=== PATIENT | male | born 1935 | race Caucasian/White ===

== ENCOUNTER 2018-02-10 09:59 | Outpatient (CLI) | payer MEDICARE ==
[2018-02-10 11:23] LABS: #Basophils 0.1 thou/uL (0.0-0.2); #Eosinphils 0.5 thou/uL (0.0-0.7); #Lymphocytes 1.4 thou/uL (1.20-3.40); #Monocytes 0.8 thou/uL (0.11-0.59); #Neutrophils 3.9 thou/uL (1.40-6.50); %Basophils 0.9 % (0.0-1.0); %Monocytes 11.8 % (0.0-10.0); %Neutrophils 59.3 % (42.0-75.0); Hemoglobin 15.3 g/dL (14.0-18.0); Mean Corpuscular HGB CONC 32.9 g/dL (32.0-36.0); Mean Corpuscular Volume 97.1 fL (78.0-98.0); Mean Platelet Volume 9.2 fL (7.4-10.4); Platelet Count 154 thou/uL (130-400); RBC Distribution Width 12.6 % (11.5-14.5); Red Blood Cell (RBC) Count 4.79 mill/uL (4.70-6.10); White Blood Cell (WBC) Count 6.6 thou/uL (4.8-10.8)
[2018-02-10 11:42] LABS: ALT (SGPT) 22 U/L (8-55); AST (SGOT) 22 U/L (5-34); Alkaline Phosphatase 97 U/L (40-150); Anion Gap 11 mmol/L (10-20); BUN (Urea Nitrogen) 21 mg/dL (8.4-25.7); Bilirubin, Total 0.7 mg/dL (0.2-1.2); Calc. Creatinine Clearance 0 mL/min (70-130); Calcium 9.5 mg/dL (7.8-10.44); Carbon Dioxide 31 mmol/L (23-31); Chloride 103 mmol/L (98-107); Estimated GFR-MDRD 71; Globulin 2.8 g/dL (2.4-3.5); Glucose 91 mg/dL (83-110); Potassium 4.2 mmol/L (3.5-5.1); Protein, Total 6.8 g/dL (5.8-8.1); Sodium 141 mmol/L (136-145)
--- NOTE | 2018-02-10 19:56 | EKG ---
Test Reason : Blood Pressure : / mmHG Vent. Rate : 051 BPM Atrial Rate : 051 BPM P-R Int : 174 ms QRS Dur : 086 ms QT Int : 462 ms P-R-T Axes : 059 -13 067 degrees QTc Int : 425 ms Sinus bradycardia Nonspecific T wave abnormality Abnormal ECG When compared with ECG of 10-JUL-2016 17:33, No significant change was found Confirmed by DR. Sixto BRITO ([id number]) on 02/10/2018 7:56:14 PM Referred By: YANIQUE Confirmed By:DR. Sixto BRITO
== END 2018-02-10 10:00 | disposition home or self-care (01) ==
LOC: LABBT 09:59
PROVIDERS: ATTEND Surgery
DX: Z01.818 Encounter for other preprocedural examination (principal); K40.91 Unilateral inguinal hernia, without obstruction or gangrene, recurrent
CPT/HCPCS: 80053; 85025; 93005; 93010

== ENCOUNTER 2018-02-21 11:48 | Outpatient (CLI) | payer MEDICARE ==
[2018-02-21 12:45] LABS: Hemoglobin 15.3 g/dL (14.0-18.0); Mean Corpuscular HGB CONC 32.3 g/dL (32.0-36.0); Mean Corpuscular Hemoglobin 31.3 pg (27.0-31.0); Mean Platelet Volume 8.8 fL (7.4-10.4); Platelet Count 163 thou/uL (130-400); RBC Distribution Width 12.6 % (11.5-14.5); White Blood Cell (WBC) Count 5.8 thou/uL (4.8-10.8)
--- NOTE | 2018-02-21 12:48 | RAD ---
TWO VIEWS OF THE CHEST: DATE: 02/21/18. COMPARISON: 07/10/16. HISTORY: Preoperative patient. FINDINGS: There is atherosclerotic calcification of the aortic arch. There is no pneumothorax, pleural fluid, focal consolidation, or alveolar edema. There is atherosclerotic calcification of the descending thoracic aorta. The lungs are mildly hyperi nflated, a stable finding. IMPRESSION: No acute findings. POS: [facility]
[2018-02-21 12:57] LABS: Prothrombin Time 13.2 SEC (12.0-14.7)
[2018-02-21 12:58] LABS: PTT 30.8 SEC (22.9-36.1)
[2018-02-21 13:12] LABS: ALT (SGPT) 22 U/L (8-55); AST (SGOT) 23 U/L (5-34); Alkaline Phosphatase 81 U/L (40-150); Anion Gap 10 mmol/L (10-20); BUN (Urea Nitrogen) 27 mg/dL (8.4-25.7); Bilirubin, Total 0.6 mg/dL (0.2-1.2); Calc. Creatinine Clearance 0 mL/min (70-130); Calcium 9.5 mg/dL (7.8-10.44); Carbon Dioxide 30 mmol/L (23-31); Chloride 105 mmol/L (98-107); Estimated GFR-MDRD 75; Globulin 2.7 g/dL (2.4-3.5); Glucose 83 mg/dL (83-110); Potassium 4.8 mmol/L (3.5-5.1); Protein, Total 6.7 g/dL (5.8-8.1); Sodium 140 mmol/L (136-145)
--- NOTE | 2018-02-21 13:38 | EKG ---
Test Reason : Blood Pressure : / mmHG Vent. Rate : 054 BPM Atrial Rate : 054 BPM P-R Int : 178 ms QRS Dur : 084 ms QT Int : 462 ms P-R-T Axes : 059 -15 082 degrees QTc Int : 438 ms Sinus bradycardia Minimal voltage criteria for LVH, may be normal variant Nonspecific T wave abnormality Cannot exclude Anterior infarct , age undetermined Abnormal ECG Confirmed by CAROL HARDIN ([id number]) on 02/21/2018 1:37:41 PM Referred By: RAJENDRA Confirmed By:CAROL HARDIN
== END 2018-02-21 11:49 | disposition home or self-care (01) ==
LOC: LABBT 11:48
PROVIDERS: ATTEND Internal Medicine Cardiovascular Disease
DX: Z01.818 Encounter for other preprocedural examination (principal); R94.39 Abnormal result of other cardiovascular function study
CPT/HCPCS: 71046; 80053; 85027; 85610; 85730; 93005; 93010

== ENCOUNTER 2018-02-25 05:56 | Inpatient (IN) | payer MEDICARE ==
[2018-02-21 12:00] VITALS: BMI 25.4
[2018-02-25] MEDS ORDERED: Lidocaine 1% (PF) 30 ML VIAL ONE (06:47)
[2018-02-25] MEDS ORDERED: Heparin 10,000 UNITS/1 ML VIAL ONE (06:49)
[2018-02-25] MEDS ORDERED: Midazolam HCl 2 mg/2 ml Vial ONE (07:13)
[2018-02-25] MEDS ORDERED: Fentanyl 100 MCG/2 ML VIAL ONE (07:13)
[2018-02-25 07:15] LABS: Cardiac Risk 2.9 (Less than 4.5)
[2018-02-25] MEDS ORDERED: Protamine Sulfate 50 MG/5 ML VIAL ONE (07:30)
[2018-02-25] MEDS ORDERED: Nitroglycerin 100MG/250ML BOT 250 ML ONE (07:45)
[2018-02-25] MEDS ORDERED: Bivalirudin 250 MG VIAL ONE (07:45)
[2018-02-25] MEDS ORDERED: Clopidogrel Bisulfate 300 MG TAB ONE ×2 (07:49→07:50)
[2018-02-25] MEDS ORDERED: Nitroglycerin 0.4 MG TAB (25 Tab Bottle) SL PRN (08:57)
[2018-02-25] MEDS ORDERED: Morphine 4 MG/ML VIAL SLOW IVP PRN (08:57)
[2018-02-25] MEDS ORDERED: Sodium Chloride 0.9% 1,000 ML IV SCH (09:00)
[2018-02-25] MEDS ORDERED: Iopamidol 370 76% 100 ML VIAL ONE (12:54)
[2018-02-25] MEDS ORDERED: Iopamidol 370 76% 50 ML VIAL FS ONE (12:54)
[2018-02-25] MEDS: Aspirin 81 mg Enteric Coated Tablet PO SCH (13:23)
[2018-02-25] MEDS: Carvedilol 3.125 MG TAB PO SCH (16:37)
[2018-02-25] MEDS ORDERED: Atorvastatin Calcium 40 MG TAB PO SCH (21:00)
[2018-02-26 07:19] VITALS: BP 144/63; TEMP 98.1
[2018-02-26] MEDS: Aspirin 81 mg Enteric Coated Tablet PO SCH (09:04)
[2018-02-26] MEDS: Carvedilol 3.125 MG TAB PO SCH (09:04)
--- NOTE | 2018-02-27 00:14 | DIS ---
DISCHARGE DIAGNOSES: 1. 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 2. Mild left ventricular dysfunction with ejection fraction of 40%-45%. 3. Moderate aortic stenosis with aortic valve area of 1.18 cm2. 4. Inability to cross the subtotal left anterior descending lesion with the wire. 5. Hypertension. 6. Hypercholesterolemia, poor control. 7. Thirteen beats of supraventricular tachycardia at a rate of 140 per minute, asymptomatic. DISCHARGE DISPOSITION: Mr. Albarado is in acceptable cardiac risk for general anesthesia to have his h ernia repair in the near future. He will be seen in 6 weeks with complete metabolic profile and fast ing lipid profile being obtained. DISCHARGE MEDICATIONS: Aspirin 81 daily, atorvastatin 40 mg daily, carvedilol 3.125 b.i.d., and isos orbide mononitrate 30 mg q.a.m. HOSPITAL COURSE: Mr. Albarado had an office cardiac PET scan performed for preoperative evaluation chey or to herniorrhaphy with Dr. Talley. This revealed severe ischemia in the mid to distal anterior, api helder and proximal to distal septal husain. He therefore underwent cardiac catheterization. He also duong s history of aortic stenosis and underwent a right heart catheterization as well. He was found to duong ve a gradient across the aortic valve of 16 mm with aortic valve area 1.18 cm2. There was mid to dis samantha anterior wall akinesis and a small area of apical dyskinesis with ejection fraction of 40%-45%. Coronary arteriography revealed a 99% proximal LAD lesion with the LAD filling retrograde from the ci rcumflex and from the right coronary artery with good collaterals. There was a 30% proximal right co ronary artery lesion. Attempt was made to pass a wire across the subtotally occluded LAD. However, with multiple wires and multiple attempts, this never could be crossed. It was felt best to treat him medically for his one -vessel coronary artery disease. Hydrochlorothiazide for hypertension was discontinued and he was in stead placed on carvedilol 3.125 b.i.d. and isosorbide mononitrate 30 q.a.m. His cholesterol was 147 , triglycerides 71, HDL 51, LDL 82 and atorvastatin was increased from 20 to 40 mg daily. He will be seen in 6 weeks for repeat lipid testing. He was observed overnight and then discharged the .
== END 2018-02-26 11:14 | disposition home or self-care (01) | DRG 287 ==
LOC: CCL 05:56 → 2NO 13:26
PROVIDERS: ADMIT Internal Medicine Cardiovascular Disease; ATTEND Internal Medicine Cardiovascular Disease
PROC: 4A023N8 Measurement of Cardiac Sampling and Pressure, Bilateral, Percutaneous Approach (ICD-10-PCS; principal; 2018-02-25)
PROC: B2111ZZ Fluoroscopy of Multiple Coronary Arteries using Low Osmolar Contrast (ICD-10-PCS; 2018-02-25)
DX: I25.10 Atherosclerotic heart disease of native coronary artery without angina pectoris (principal); I47.1 Supraventricular tachycardia; R94.39 Abnormal result of other cardiovascular function study; Z87.891 Personal history of nicotine dependence; I49.3 Ventricular premature depolarization; I25.82 Chronic total occlusion of coronary artery; I35.0 Nonrheumatic aortic (valve) stenosis; I34.0 Nonrheumatic mitral (valve) insufficiency; Z82.49 Family history of ischemic heart disease and other diseases of the circulatory system; E78.00 Pure hypercholesterolemia, unspecified; I10 Essential (primary) hypertension; E66.9 Obesity, unspecified; Z79.82 Long term (current) use of aspirin; Z79.899 Other long term (current) drug therapy; Z68.25 Body mass index [BMI] 25.0-25.9, adult
CPT/HCPCS: 36415; 80061; 85347; 93460; 99152; 99153; C1725; C1769; C1887; J0583; J1644; J2001; J2250; J2720; J3010

== ENCOUNTER 2018-03-07 08:10 | Day surgery (SDC) | payer MEDICARE ==
[2018-03-06 11:32] VITALS: BMI 24.7
[2018-03-07] MEDS ORDERED: CEFAZOLIN/Water 2 GM/20 ML SYRINGE ONE (08:27)
--- NOTE | 2018-03-07 09:01 | HP ---
CHIEF COMPLAINT: Multiple recurrent left inguinal hernia. HISTORY OF PRESENT ILLNESS: The patient is an 82-year-old male who has had at least 6 hernia repairs on the left with a recurrence. It is causing a lot of pain. He is here for repair. PAST MEDICAL HISTORY: Prostate cancer, kidney stones. PAST SURGICAL HISTORY: Include multiple bilateral inguinal hernia repairs. He has had a repair of a broken femur. He had a colon resection in 1976, a total hip replacement in 2012. MEDICATIONS: Atorvastatin, Lotrisone, aspirin, mometasone cream, hydrochlorothiazide. FAMILY HISTORY: Father of a stroke. Mother of heart disease. SOCIAL HISTORY: He is retired. No tobacco or alcohol. ALLERGIES: He has no known drug allergies. PHYSICAL EXAMINATION: VITAL SIGNS: Height 68, weight 176. Body mass index 26.76, blood pressure 139/67, pulse 67. GENERAL: Well-developed, well-nourished male in no apparent distress. HEENT: Unremarkable. LUNGS: Clear. HEART: Regular rate and rhythm. ABDOMEN: Soft, nondistended, nontender. He has multiple well-healed surgical scars midline and radi ation changes from prostate cancer. He has a recurrent left inguinal hernia. It is reducible. EXTREMITIES: He has good pulses. No pedal edema. ASSESSMENT: Recurrent left inguinal hernia. PLAN: Left inguinal hernia repair with mesh. CONSENT: I have discussed the planned procedure as well as risk of bleeding, infection, recurrence. He understands and gives informed consent.
[2018-03-07] MEDS ORDERED: Bupivacaine/Epinephrine 0.25% 30 ML VIAL ONE (09:24)
[2018-03-07] MEDS ORDERED: Fentanyl 100 MCG/2 ML VIAL ONE (10:01)
[2018-03-07] MEDS ORDERED: Albuterol Sulfate HFA (OR ONLY) ONE (10:49)
--- NOTE | 2018-03-07 13:39 | OP ---
DATE OF PROCEDURE: 03/07/2018 PREOPERATIVE DIAGNOSIS: Twelfth recurrent left inguinal hernia. SURGEON: Kayden Talley M.D. PROCEDURE PERFORMED: Recurrent left inguinal hernia repair. INDICATIONS: This is an 82-year-old male who has had 11 previous left inguinal hernia repairs with r ecurrence. It is causing pain. He is here for repair. FINDINGS: He had multiple layers of mesh and they had medially from the rectus and there w as a large hernia sac there. PROCEDURE: After informed consent was obtained, the patient was taken to the operating room, given g eneral endotracheal anesthesia. He was placed in the supine position. His groin area was prepped an d draped in usual fashion. Local anesthesia infiltrated subcutaneously and deep. A transverse left inguinal incision was performed. The subcu divided sharply. It was just going through scar tissue, just small amount by small amount with dissection with the hemostat. I was able to define some exter nal oblique fascia which was fairly sclerotic, went through that and then I was able to actually find the spermatic cord. I was able to dissect out the spermatic cord and isolate it with a Pinckard dreloina n. Also, just medial to the spermatic cord was a very thick hernia sac, so I dissected out the herni a sac and the mesh was like rock. It was attached laterally, but it had flipped up and created a def ect, so I the hernia sac from the mesh and then I was able to find pretty secure tissue margaret ng the rectus and down to the pubic tubercle and so I just did interrupted 0 Prolene [id number] from pubic tubercle and then the mesh and then to the rectus abdominis and then rectus abdominis to the mesh and then to close the defect. It felt very strong. I probably used about 12 different sutu res. I then irrigated. Hemostasis achieved. The cord was basically anterior to the mesh. I then c losed the external oblique fascia with a running 3-0 Vicryl, but it was a transverse, actually I am n ot sure if it was external oblique fascia or just scar tissue, but I closed that layer with a running 3-0 Vicryl, and then closed the skin with a running subcuticular 4-0 Rapide. Steri-Strips applied. Sterile bandage applied. The patient tolerated the procedure well, transferred to recovery in good condition. Sponge and needle count verified correct x2.
== END 2018-03-07 13:39 | disposition home or self-care (01) ==
LOC: SDC 08:10
PROVIDERS: ATTEND Surgery
PROC: 0YU60JZ Supplement Left Inguinal Region with Synthetic Substitute, Open Approach (ICD-10-PCS; principal; 2018-03-07)
DX: K40.91 Unilateral inguinal hernia, without obstruction or gangrene, recurrent (principal); Z98.890 Other specified postprocedural states
CPT/HCPCS: J3010

== ENCOUNTER 2018-08-07 12:52 | Outpatient (CLI) | payer MEDICARE, OTHER ==
[2018-08-07 14:30] LABS: #Eosinphils 0.7 thou/uL (0.0-0.7); #Lymphocytes 1.6 thou/uL (1.20-3.40); #Monocytes 0.8 thou/uL (0.11-0.59); #Neutrophils 4.2 thou/uL (1.40-6.50); %Basophils 0.5 % (0.0-1.0); %Eosinophils 9.2 % (0.0-10.0); %Lymphocytes 22.1 % (21.0-51.0); %Monocytes 11.3 % (0.0-10.0); Hemoglobin 15.1 g/dL (14.0-18.0); Mean Corpuscular HGB CONC 32.8 g/dL (32.0-36.0); Mean Corpuscular Hemoglobin 31.4 pg (27.0-31.0); Mean Corpuscular Volume 95.8 fL (78.0-98.0); Platelet Count 158 thou/uL (130-400); RBC Distribution Width 12.8 % (11.5-14.5); White Blood Cell (WBC) Count 7.3 thou/uL (4.8-10.8)
[2018-08-07 14:36] LABS: INR-International Normal Ratio 1.1; Prothrombin Time 14.4 SEC (12.0-14.7)
--- NOTE | 2018-08-07 14:40 | RAD ---
TWO VIEWS CHEST: Date: 08-07-18 Provided Clinical History: Pre op. FINDINGS: Comparison 02-21-18. Cardiac and mediastinal silhouette is unchanged in appearance. Vascular calcification involves the ao rtic arch. Probable subsegmental atelectatic change of the left lung base. No pleural fluid or pneumo thorax apparent. IMPRESSION: No definite evidence for an acute cardiopulmonary process. POS: [facility]
[2018-08-07 14:48] LABS: Anion Gap 11 mmol/L (10-20); BUN (Urea Nitrogen) 26 mg/dL (8.4-25.7); Calc. Creatinine Clearance 0 mL/min (70-130); Calcium 9.8 mg/dL (7.8-10.44); Carbon Dioxide 29 mmol/L (23-31); Chloride 107 mmol/L (98-107); Estimated GFR-MDRD 85; Glucose 84 mg/dL (83-110); Potassium 5.1 mmol/L (3.5-5.1); Sodium 142 mmol/L (136-145)
== END 2018-08-07 12:53 | disposition home or self-care (01) ==
LOC: LABBT 12:52
PROVIDERS: ATTEND Orthopaedic Surgery
DX: Z01.818 Encounter for other preprocedural examination (principal); M17.12 Unilateral primary osteoarthritis, left knee
CPT/HCPCS: 71046; 80048; 85025; 85610; 87081; 93005; 93010

== ENCOUNTER 2018-08-19 09:33 | Inpatient (IN) | payer MEDICARE ==
[2018-08-07 13:31] VITALS: BMI 24.7
[2018-08-19] MEDS ORDERED: Ropivacaine 0.5% HCl/PF (150 MG/30 ML VIAL) ONE (10:16)
[2018-08-19] MEDS ORDERED: Bupivacaine 0.25% HCL 30 ML VIAL ONE (10:16)
[2018-08-19] MEDS ORDERED: Midazolam HCl 2 mg/2 ml Vial ONE (11:17)
[2018-08-19] MEDS ORDERED: Fentanyl 100 MCG/2 ML VIAL ONE ×4 (11:17→15:15)
[2018-08-19] MEDS ORDERED: CEFAZOLIN 2 GM/50 ML BAG ONE (11:38)
[2018-08-19] MEDS ORDERED: Tranexamic Acid 1,000 MG/10 ML VIAL ONE (11:38)
[2018-08-19] MEDS ORDERED: Sodium Chloride 0.9% 100 ML ONE (11:38)
[2018-08-19] MEDS ORDERED: Zolpidem Tartrate 5 MG TAB PO PRN ×2 (12:02→14:18)
[2018-08-19] MEDS ORDERED: Acetaminophen 325 MG TAB PO PRN (12:02)
[2018-08-19] MEDS ORDERED: Ondansetron PF 4 MG/2 ML Vial IVP PRN ×2 (12:02→14:18)
[2018-08-19] MEDS ORDERED: Promethazine HCl 25 MG/ML VIAL IM PRN ×3 (12:02→14:18)
[2018-08-19] MEDS ORDERED: traMADol HCl 50 MG TAB PO PRN ×3 (12:02→14:18)
[2018-08-19] MEDS ORDERED: diphenhydrAMINE 25 MG CAP PO PRN (12:02)
[2018-08-19] MEDS ORDERED: HYDROcodone/Acetaminophen 10/325 mg Tablet PO PRN ×2 (12:02)
[2018-08-19] MEDS ORDERED: CEFAZOLIN/Water 2 GM/20 ML SYRINGE SLOW IVP SCH (12:15)
[2018-08-19] MEDS ORDERED: Ondansetron PF 4 MG/2 ML Vial ONE (13:03)
[2018-08-19] MEDS ORDERED: PROPOFOL 200 MG/20 ML VIAL ONE (13:03)
[2018-08-19] MEDS ORDERED: Dexamethasone 20 MG/5 ML VIAL ONE (13:03)
[2018-08-19] MEDS ORDERED: ePHEDrine/0.9% NaCl/PF SYRINGE 50 mg/10 ml ONE (13:03)
[2018-08-19] MEDS ORDERED: Ondansetron HCl/PF 4 MG/2 ML Vial IVP PRN (13:57)
[2018-08-19] MEDS ORDERED: Promethazine HCl 25 MG/ML VIAL SLOW IVP PRN (13:57)
[2018-08-19] MEDS ORDERED: Ketorolac Tromethamine 30 MG/ML VIAL IVP SCH (14:00)
[2018-08-19] MEDS ORDERED: Ropivacaine HCl/PF 250 ML in Premix Bag 1 BAG NERVE BLCK SCH (14:18)
[2018-08-19] MEDS ORDERED: Ketorolac Tromethamine 30 MG/ML VIAL IVP PRN (14:18)
[2018-08-19] MEDS ORDERED: Fentanyl 100 MCG/2 ML VIAL IV PRN (14:21)
[2018-08-19] MEDS ORDERED: HYDROcodone/Acetaminophen 7.5/325 mg Tablet PO PRN (14:27)
--- NOTE | 2018-08-19 15:57 | RAD ---
LEFT KNEE TWO VIEW: 08/19/18 HISTORY: Postop total knee. COMPARISON: None. FINDINGS: There is satisfactory positioning of left total knee arthroplasty and total resurfacing. There appears to be a partially embedded cortical screw which is fractured of the distal femur extend ing from the mid medullary cavity through the cortex with the tip proud of the cortex approximately 8 mm. Moderate vascular calcifications. IMPRESSION: 1. Satisfactory postoperative appearance of the total knee arthroplasty. 2. Old fracture screw of the distal femoral diaphysis with the tip proud of the medial cortex 8 mm. POS: [facility]
[2018-08-19] MEDS: Carvedilol 3.125 MG TAB PO SCH ×3 (16:32→20:19)
[2018-08-19] MEDS: Sodium Chloride 0.9% 1,000 ML IV SCH ×2 (17:28→23:44)
[2018-08-19] MEDS ORDERED: Labetalol HCl 100 MG/20 ML VIAL SLOW IVP PRN (18:32)
[2018-08-19] MEDS ORDERED: hydrALAZINE 20 MG/ML VIAL SLOW IVP PRN (18:32)
[2018-08-19] MEDS: CEFAZOLIN 2 GM/50 ML-DEXTROSE 2 GM in Premix Bag 1 BAG IVPB SCH (20:18)
[2018-08-19] MEDS: Senokot S 8.6-50 MG TAB PO SCH (20:18)
[2018-08-19] MEDS: Aspirin 81 mg Enteric Coated Tablet PO SCH (20:19)
[2018-08-19] MEDS: Ferrous Gluconate 324 MG TAB PO SCH (20:19)
[2018-08-20] MEDS: CEFAZOLIN 2 GM/50 ML-DEXTROSE 2 GM in Premix Bag 1 BAG IVPB SCH (03:01)
[2018-08-20] MEDS: HYDROcodone/Acetaminophen 7.5/325 mg Tablet PO PRN ×3 (03:58→15:38)
[2018-08-20 07:37] LABS: Hemoglobin 13.9 g/dL (14.0-18.0); Mean Corpuscular HGB CONC 33.1 g/dL (32.0-36.0); Mean Corpuscular Hemoglobin 31.2 pg (27.0-31.0); Mean Corpuscular Volume 94.2 fL (78.0-98.0); Mean Platelet Volume 9.6 fL (7.4-10.4); Platelet Count 142 thou/uL (130-400); RBC Distribution Width 12.6 % (11.5-14.5); Red Blood Cell (RBC) Count 4.45 mill/uL (4.70-6.10); White Blood Cell (WBC) Count 11.4 thou/uL (4.8-10.8)
[2018-08-20] MEDS: Sodium Chloride 0.9% 1,000 ML IV SCH ×2 (08:06→15:07)
[2018-08-20] MEDS ORDERED: Aspirin 81 mg Enteric Coated Tablet PO SCH (09:00)
[2018-08-20] MEDS: Multivitamin W/ Minerals 1 TAB PO SCH (09:07)
[2018-08-20] MEDS: Atorvastatin Calcium 40 MG TAB PO SCH (09:07)
[2018-08-20] MEDS: Carvedilol 3.125 MG TAB PO SCH ×3 (09:08→20:15)
[2018-08-20] MEDS: Aspirin 81 mg Enteric Coated Tablet PO SCH ×2 (09:08→20:15)
[2018-08-20] MEDS: Senokot S 8.6-50 MG TAB PO SCH ×2 (09:08→20:15)
[2018-08-20] MEDS: Ferrous Gluconate 324 MG TAB PO SCH ×2 (09:08→20:15)
--- NOTE | 2018-08-20 11:25 | OP ---
DATE OF PROCEDURE: 08/19/2018 PREOPERATIVE DIAGNOSIS: Degenerative joint disease, left knee. POSTOPERATIVE DIAGNOSIS: Degenerative joint disease, left knee. ANESTHESIA: General. BLOOD LOSS: Minimal. SPECIMENS: None. DRAINS: None. COMPLICATIONS: None. TOURNIQUET TIME: 47 minutes. IMPLANTS USED: Kylah triathlon 5 femur, 6 tibia, 9 mm CS X3 polyethylene and a 35 patella. PROCEDURE IN DETAIL: After informed consent was obtained in the preoperative holding area, the patient was taken to the operative suite where general anesthesia was induced. Once adequate level of general anesthesia was obtained, the patient was positioned and a well-padded tourniquet was placed around the left proximal thigh. The left lower extremity was then prepped and draped in the usual sterile fashion. Prior to exsanguination, a time-out was called and all members of the surgical team agreed upon site, surgeon, and patient. The extremity was then exsanguinated and the tourniquet was raised. A midline longitudinal incision was then made directly over the patella extending 2 fingerbreadths above the superior pole of the patella and 2 fingerbreadths inferior to the inferior patellar pole of the patella. Deeper subcutaneous layers were dissected sharply and local bleeding was controlled with Bovie electrocautery. A quad tendon longitudinal split was then made sharply and a median parapatellar arthrotomy was carried out both sharp and with Bovie electrocautery, carried down to 1 fingerbreadth medial to the tibial tubercle. The knee was then placed into flexion and the patella was everted nicely, and a copious fat pad ectomy was performed allowing for greater exposure of the tibia. The computer-assisted distal femoral fiducial was then placed and pinned firmly, and the distal femoral cutting guide was pinned firmly into place. The oscillating saw was then used to remove the appropriate amount of bone. The 4-in-1 cutting block was then placed on the distal femur and the oscillating saw was used to remove the appropriate amount of bone off the anterior, posterior, and chamfer cuts. After completion of bone cuts, the anterior cruciate ligament was resected sharply and the posterior cruciate ligament retractor was placed and the tibia was subluxed for better exposure. Partial meniscectomies were carried out, and the tibial computer-assisted fiducial was pinned, and the cutting guide was placed. Oscillating saw was then used to remove the bone, with Hohmann retractors used to take care and protect the collateral ligaments. After the tibial resection was performed, a laminar director employee safety and health was placed in between the freshened bone cuts. The knee placed at 90 degrees and further bilateral meniscectomies were carried out, and the curved osteotome and curettage were used to remove any excess bone spurs in the posterior compartment. The trial femoral component, tibial baseplate were placed with the appropriate polyethylene trial insert with an appropriate polyethylene spacer and patellar button. The knee was taken through full range of motion with flexion and extension from 0 to 90 degrees and patellar broach squarely in the trochlea without any squinting or subluxation noted. The knee was also stable to varus and valgus stressing at 0, 15, 45, and 90 degrees of flexion. The drawer was negative. All trial components were then removed and the keel punch was used to provide the appropriate defect in the tibia with a mallet. The freshened bone cuts were copiously irrigated with pulsatile lavage of about 1.5 L to remove all excess debris. The freshened bone cuts were then dried with suction and lap sponge. The knee was placed in flexion and retractors were placed to provide access to all bone cuts. Tobramycin-impregnated methyl methacrylate cement was then placed on the freshened bone cuts and implants which were malleted firmly into place. Curettage and Brooks elevators were used to remove any excess bone cement. The knee was placed into full extension and the patellar button was placed under compression, and the cement was allowed to cure. Once completed, the components were again taken through full range of motion and copious irrigation of the knee was carried out with another liter of normal saline. All components were inspected fully with full range of motion and varus and valgus stressing. There was no laxity noted and full extension was observed clinically. Primary closure was accomplished with #2 interrupted Vicryl stitch of the arthrotomy defect. This was oversewn with a #2 running Quill barbed stitch. The gravitational platelet system was then injected into the arthrotomy prior to closure. The subcutaneous layer was then closed with a running 0 barbed Monocryl stitch and skin closure accomplished with a running subcuticular 3-0 Monocryl barbed Quill stitch and augmented with cement on the skin. Tourniquet was lowered. Good spontaneous return of distal pulses was noted clinically and a sterile dressing was applied to the incision. The procedure was terminated without any complications. The patient was awakened in the operative suite and the patient was taken to the recovery room in stable condition. Job ID: [id number]
--- NOTE | 2018-08-20 15:08 | CON ---
DATE OF CONSULTATION: HISTORY OF PRESENT ILLNESS: The patient is an 82-year-old male, who is status post left total knee replacement surgery. The patient notes that he is doing well at this time post surgery. He has no medical complaints. No chest pain. No shortness of breath. Actually feeling quite well. ALLERGIES: HE HAS NO KNOWN ALLERGIES. CURRENT HOME MEDICATIONS: 1. Naprosyn. 2. Isosorbide. 3. Carvedilol. 4. Atorvastatin. 5. Aspirin. PAST SURGICAL HISTORY: Positive for multiple hernia repairs. PAST MEDICAL HISTORY: He has a history of atherosclerotic coronary artery disease. Previous history of subdural hematoma. REVIEW OF SYSTEMS: GI: Negative. : Negative. CARDIOVASCULAR: Otherwise negative. PHYSICAL EXAMINATION: VITAL SIGNS: Blood pressure 161/73, temperature 98.7, pulse 79, respirations 20, and O2 saturation 96%. GENERAL: He is alert and active, in no acute distress. HEENT: Normocephalic and atraumatic. Extraocular muscles intact. Sclerae and conjunctivae clear. Throat clear. NECK: Supple. Full range of motion. No masses. LUNGS: Clear. HEART: Reveals a regular rate and rhythm. No murmurs, gallops, or rubs. NEUROLOGIC: He is alert and oriented x3. LABORATORY DATA: Hemoglobin is 13.9 and hematocrit 41.9. IMPRESSION: Status post left total knee replacement, doing well postoperatively. PLAN: Continue current medical care. Job ID: [id number]
[2018-08-21] MEDS: Sodium Chloride 0.9% 1,000 ML IV SCH ×2 (03:46→08:26)
[2018-08-21] MEDS: HYDROcodone/Acetaminophen 7.5/325 mg Tablet PO PRN ×3 (03:47→14:50)
[2018-08-21 06:54] LABS: Hemoglobin 12.7 g/dL (14.0-18.0); Mean Corpuscular HGB CONC 32.6 g/dL (32.0-36.0); Mean Corpuscular Hemoglobin 31.2 pg (27.0-31.0); Mean Corpuscular Volume 95.8 fL (78.0-98.0); Mean Platelet Volume 10.5 fL (7.4-10.4); Platelet Count 103 thou/uL (130-400); RBC Distribution Width 12.7 % (11.5-14.5); Red Blood Cell (RBC) Count 4.07 mill/uL (4.70-6.10); White Blood Cell (WBC) Count 10.6 thou/uL (4.8-10.8)
[2018-08-21 07:45] VITALS: BP 203/76; TEMP 98.5
[2018-08-21] MEDS: Carvedilol 3.125 MG TAB PO SCH (08:22)
[2018-08-21] MEDS: Multivitamin W/ Minerals 1 TAB PO SCH (08:24)
[2018-08-21] MEDS: Senokot S 8.6-50 MG TAB PO SCH (08:24)
[2018-08-21] MEDS: Atorvastatin Calcium 40 MG TAB PO SCH (08:24)
[2018-08-21] MEDS: Aspirin 81 mg Enteric Coated Tablet PO SCH (08:24)
[2018-08-21] MEDS: Ferrous Gluconate 324 MG TAB PO SCH (08:24)
--- NOTE | 2018-08-21 14:46 | PRG ---
DATE OF SERVICE: 08/21/2018 SUBJECTIVE: Mr. Albarado is doing well, still having some pain to his left knee. OBJECTIVE: VITAL SIGNS: Temperature 99.5, blood pressure 169/92, and O2 saturation 92% on room air. GENERAL: Alert and active, in no distress. LUNGS: Clear. LABORATORY DATA: Hemoglobin 12.7 and hematocrit 39.0. IMPRESSION: Stable postop course with mildly elevated blood pressure. PLAN: Continue all medications. His blood pressure will settle down once his pain level mitigate. Job ID: [id number]
== END 2018-08-21 15:00 | disposition home or self-care (01) | DRG 470 ==
LOC: SDC 09:33 → SJJU 17:04
PROVIDERS: ADMIT Orthopaedic Surgery; ATTEND Orthopaedic Surgery
PROC: 0SRD0J9 Replacement of Left Knee Joint with Synthetic Substitute, Cemented, Open Approach (ICD-10-PCS; principal; 2018-08-19)
DX: M17.12 Unilateral primary osteoarthritis, left knee (principal); I25.10 Atherosclerotic heart disease of native coronary artery without angina pectoris; Z79.82 Long term (current) use of aspirin; Z86.79 Personal history of other diseases of the circulatory system
CPT/HCPCS: 36415; 85027; 96374; C1713; C1776; J1100; J2250; J2405; J2704; J2795; J3010; J3370; J7050; S0020

== ENCOUNTER 2018-09-12 14:05 | Outpatient (CLI) | payer MEDICARE ==
--- NOTE | 2018-09-12 15:48 | CT ---
CT ABDOMEN AND PELVIS: DATE: 09/12/2018. PROVIDED CLINICAL HISTORY: Kidney stones. FINDINGS: No comparisons. The visualized lung bases are free of significant opacity. There is moderate left hydronephrosis and left hydroureter. The distal left ureter and urinary bladd er are poorly evaluated on the basis of extensive beam hardening artifact from right hip arthroplasty and left hip fracture fixation change. No definite calculus is seen to explain the hydronephrosis. There is a probable simple cyst involving the inferior pole of the right kidney. Medullary nephroca lcinosis is seen. The solid abdominal organs are suboptimally evaluated in the absence of IV contrast material but demo nstrate an otherwise unremarkable unenhanced CT appearance with exception of several hepatic cysts. There is no bowel dilatation, inflammatory fat stranding, free fluid, or lymph node enlargement appar ent, again with limitations in evaluating the pelvis. Vascular calcifications are extensively seen involving the abdominal aorta and its branches. The osseous structures demonstrate no concerning lytic or blastic lesions. IMPRESSION: 1. Left hydronephrosis and left hydroureter, the etiology for which is not certain on the basis of t his study. Limited evaluation of the pelvis related to beam-hardening artifact. 2. Other chronic findings as above. POS: [facility]
== END 2018-09-12 14:06 | disposition home or self-care (01) ==
LOC: SCSCT 14:05
PROVIDERS: ATTEND Urology
DX: N13.2 Hydronephrosis with renal and ureteral calculous obstruction (principal)
CPT/HCPCS: 74176

== ENCOUNTER 2018-10-20 08:16 | Outpatient (CLI) | payer MEDICARE ==
--- NOTE | 2018-10-20 11:08 | CT ---
CT ABDOMEN AND PELVIS WITHOUT CONTRAST: Date: 10/20/18 HISTORY: 83-year-old male with kidney stones. COMPARISON: 09/12/18. FINDINGS: Absence of oral and IV contrast reduces the sensitivity of exam, particularly for evaluation of solid organs and bowel. There is beam-hardening artifact from hardware in the proximal femurs which reduces the sensitivity o f exam. The lung bases are clear. No free air or free fluid is noted in the abdomen or pelvis. Cysts in the l iver are stable. There are calcified gallstones. There is colonic diverticulosis. There is fecal mate rial in the colon. There are vascular calcifications without evidence of aneurysmal dilatation of the abdominal aorta. Degenerative changes are present in the spine. The moderate left hydroureteronephrosis is stable. Evaluation of the distal left ureter and urinary b ladder is limited due to beam-hardening artifact from adjacent metallic hardware. 3.5 cm cyst in the right kidney is stable. There are punctate calculi in the kidneys. No calculi seen in the visualized portions of the ureters. No right-sided hydroureteronephrosis is seen. IMPRESSION: 1. Stable left hydroureteronephrosis. 2. Punctate renal calculi. 3. Hepatic and right renal cysts. 4. Cholelithiasis. 5. Colonic diverticulosis. POS: [facility]
== END 2018-10-20 08:17 | disposition home or self-care (01) ==
LOC: SCSCT 08:16
PROVIDERS: ATTEND Urology
DX: N13.2 Hydronephrosis with renal and ureteral calculous obstruction (principal); N28.1 Cyst of kidney, acquired; K76.89 Other specified diseases of liver; K80.20 Calculus of gallbladder without cholecystitis without obstruction; K57.30 Diverticulosis of large intestine without perforation or abscess without bleeding
CPT/HCPCS: 74176

== ENCOUNTER 2018-10-27 08:32 | Outpatient (CLI) | payer MEDICARE ==
[~2018-10-27 08:32] MED LIST: Iopamidol 370 76% 100 ML VIAL ONE
--- NOTE | 2018-10-27 10:08 | CT ---
CT ABDOMEN AND PELVIS WITH AND WITHOUT CONTRAST: HISTORY: Renal stones. Hematuria. TECHNIQUE: Contrast enhanced CT images of the abdomen and pelvis are obtained before and after the administratio n of IV contrast. FINDINGS: The lung bases are unremarkable. No evidence of free intraperitoneal air is seen. Multiple hypodens e lesions are seen in the liver, compatible with hepatic cysts. Gallstones seen in the gallbladder neck. No evidence of gallbladder wall thickening is seen. The patient has a small hiatal hernia, sliding type. There is a soft tissue mass at the anterior aspect of the spleen, which is not normal splenic tissue. Diameter measures approximately 3.5 cm. This may represent a splenic metastatic lesion or malignan cy. The pancreas is unremarkable. The adrenal glands are unremarkable. There is a hypodense, nonenhancing area in the lower pole of the right kidney, diameter measuring lina roximately 3.6 cm, compatible with a possible renal cortical cyst. There is left ureteral dilatation without evidence of ureteral calculi. Atherosclerotic calcification is seen in the abdominal aorta. The small bowel is unremarkable. Numerous colonic diverticula are present. IMPRESSION: 1. Left hydroureteronephrosis. A distal left ureteral soft tissue lesion cannot be excluded. 2. Cholelithiasis. 3. Splenic mass. POS: [facility]
== END 2018-10-27 08:33 | disposition home or self-care (01) ==
LOC: CT 08:32
PROVIDERS: ATTEND Urology
DX: N13.39 Other hydronephrosis (principal); R31.0 Gross hematuria; K80.20 Calculus of gallbladder without cholecystitis without obstruction; D73.89 Other diseases of spleen
CPT/HCPCS: 36415; 74178; 82565; Q9967

== ENCOUNTER 2018-11-03 06:53 | Day surgery (SDC) | payer MEDICARE ==
[2018-10-30 15:04] VITALS: BMI 24.3
[2018-11-03] MEDS ORDERED: cefTRIAXone\\ROCEPHIN 2 GM VIAL ONE (07:01)
[2018-11-03] MEDS ORDERED: Sodium Chloride 0.9% 100 ML ONE (07:02)
[2018-11-03] MEDS ORDERED: Vancomycin HCl 1.5 GM in Sodium Chloride 0.9% 250 ML 300 ML IVPB SCH (07:15)
[2018-11-03] MEDS ORDERED: Fentanyl 100 MCG/2 ML VIAL ONE (09:26)
[2018-11-03] MEDS ORDERED: Iothalamate Meglumine 60% 50 ML VIAL FS ONE (09:29)
--- NOTE | 2018-11-03 12:10 | OP ---
DATE OF PROCEDURE: 11/03/2018 PREOPERATIVE DIAGNOSIS: Left hydronephrosis. POSTOPERATIVE DIAGNOSIS: Left hydronephrosis. PROCEDURES PERFORMED: Cystoscopy, left ureteral washings and brushings, left retrograde, left stent. ANESTHESIA: General. ESTIMATED BLOOD LOSS: Minimal. FINDINGS: There were some radiation changes on the floor of the bladder and trigone. Two ureteral orifices in normal position. There was no evidence of stricture disease. There was no bladder tumor, foreign body, or stones. The retrograde study showed a dilated left upper mid and lower collecting system down to the distal ureter or tapered down just proximal to the bladder. We did not see a persistent filling defect in this region just general tapering down of the ureter in this region. Ureteroscopy was not done as the ureteral orifice was small. He has had a history of prostate cancer, has been radiated for, so we need to do ureteroscopy. We will await until after stents put in for a week or so. Urine and saline from the left ureter were sent for washings, brushings were also sent and a 6 x 26 double-J stent without string was placed. DESCRIPTION OF PROCEDURE: Obtained written and verbal consent from the patient after receiving both Rocephin and vancomycin because of the relatively recent total knee replacement. He was taken to the operating suite. He was placed in the supine position on the treatment table. PlexiPulses were placed on his lower extremities and turned on. He was given a general anesthetic and oral obturator intubation. He was placed in the dorsal lithotomy position. He was sterilely prepped and draped. Cystoscopy was performed with a 22-Sinhala sheath. This was well lubricated and passed under direct vision through the male urethra and into the urinary bladder with aid of a 30-degree lens and video camera and monitor. The bladder was filled and emptied number of times and examined both the 30 and the 70-degree lens with the findings above. We next brought in a Pollack 5-Sinhala catheter and placed into the left ureteral orifice and up about a centimeter so and then injected 10 mL of saline and then went up and down the ureter with a Pollack drawn back obtaining about 20 mL of urine mixed with saline. We then through the same Pollack, brought in and placed through it. I brushed for cytology and this was done by magnifying the fluoroscopic imaging and brushing the distal ureter. This was then sprayed on the slide, and sprayed in the tip was also sent. We then re-did the washings after having done this. At this point, I went ahead and did the retrograde study with the above findings. We fed the guidewire back up the open-ended catheter after the retrogrades were done after placing it into the ureter and then placed through the 6 x 26 Polaris double-J stent over the guidewire, pushing up into place with aid of a pusher, so its proximal end coiled in the renal pelvis and its distal end coiled in the bladder when the wire was drained. The instruments were removed after the bladder was drained. He was taken out of dorsal lithotomy position, awakened, extubated, and taken by stretcher to recovery room. Job ID: [id number]
--- NOTE | 2018-11-03 12:34 | RAD ---
RETROGRADE PYELOGRAM: 11/03/2018 HISTORY: Left-sided hydronephrosis and hydroureter, seen on prior CT exam. COMPARISON: None. FINDINGS: Sixteen images from a left-sided retrograde pyelogram provided. The opacified portions of the ureter demonstrate diffuse moderate dilatation. There is also dilation of the renal pelvis on the left wit h mild calyceal blunting throughout the left kidney. Final image demonstrates placement of a double- J ureteral stent on the left. There is questionable incomplete filling at the distal aspect of the u reter on the left, which could signify incomplete contrast opacification for distal ureteral stenosis or lesion. IMPRESSION: Mild, nonspecific hydronephrosis/hydroureter on the left, etiology uncertain. Incomplete filling of distal ureter could signify an underlying soft tissue mass lesion. Final imaging demonstrates placem ent of a left double-J ureteral stent. POS: ANABELLE
[2018-11-03] MEDS ORDERED: PROPOFOL 200 MG/20 ML VIAL ONE (16:40)
[2018-11-03] MEDS ORDERED: PHENYLEPHRINE-NS 100 MCG/ML 10 ML SYRINGE ONE (16:40)
[2018-11-03] MEDS ORDERED: Lidocaine 1% PF 5 ML VIAL ONE (16:40)
== END 2018-11-03 12:45 | disposition home or self-care (01) ==
LOC: SDC 06:53
PROVIDERS: ATTEND Urology
PROC: 0T778DZ Dilation of Left Ureter with Intraluminal Device, Via Natural or Artificial Opening Endoscopic (ICD-10-PCS; principal; 2018-11-03)
DX: N13.30 Unspecified hydronephrosis (principal); Z85.46 Personal history of malignant neoplasm of prostate; Z92.3 Personal history of irradiation; Z96.652 Presence of left artificial knee joint; Z91.09 Other allergy status, other than to drugs and biological substances; Z79.82 Long term (current) use of aspirin; Z79.899 Other long term (current) drug therapy; Z98.890 Other specified postprocedural states
CPT/HCPCS: 74420; 88112; C1758; C1769; J0696; J2001; J2704; J3010; J3370; J7050; Q9961

== ENCOUNTER 2018-11-14 08:16 | Outpatient (CLI) | payer MEDICARE ==
--- NOTE | 2018-11-14 13:45 | PET ---
PET SCAN WITH CT ATTENUATION CORRECTION: HISTORY: Splenic mass. Lesion may be hypermetabolic, requiring biopsy. COMPARISON: None. CORRELATION: Abdomen and pelvic CT dated 10/27/18. TECHNIQUE: PET scan with CT attenuation correction was performed from the base of the brain to the proximal thig hs following the intravenous administration of 13 mCi [id number]. FINDINGS: HEAD/NECK: No abnormal FDG localization. CHEST: No abnormal FDG localization. ABDOMEN/PELVIS: There is retention of radiotracer in a dilated intra and extrarenal collecting system. There is no abnormal FDG localization. Specifically, there is no abnormal FDG localization involving the lesion noted in the spleen. OSSEOUS STRUCTURES: No abnormal FDG localization. IMPRESSION: No abnormal FDG localization, especially in the lesion in the spleen. Differential considerations fav or a splenic hemangioma, versus hamartoma, versus other benign lesion. As a conservative measure, fol low-up imaging in 6 months is recommended. POS: ANABELLE
== END 2018-11-14 08:17 | disposition home or self-care (01) ==
LOC: PET 08:16
PROVIDERS: ATTEND Surgery
DX: R16.1 Splenomegaly, not elsewhere classified (principal); D73.89 Other diseases of spleen
CPT/HCPCS: 78815; A9552

== ENCOUNTER 2020-12-09 14:45 | Outpatient (CLI) | payer MEDICARE ==
[2018-10-30 16:17] LABS: INR-International Normal Ratio 1.1; PTT 30.1 SEC (22.9-36.1); Prothrombin Time 14.1 SEC (12.0-14.7)
[2018-10-30 16:27] LABS: Anion Gap 12 mmol/L (10-20); BUN (Urea Nitrogen) 24 mg/dL (8.4-25.7); Calc. Creatinine Clearance 0 mL/min (70-130); Calcium 9.5 mg/dL (7.8-10.44); Carbon Dioxide 30 mmol/L (23-31); Chloride 106 mmol/L (98-107); Glucose 88 mg/dL (83-110); Potassium 4.9 mmol/L (3.5-5.1); Sodium 143 mmol/L (136-145)
[2018-10-30 17:06] LABS: Band 11 % (5-11); Eosinophils 7 % (0-10); Hemoglobin 14.5 g/dL (14.0-18.0); Lymphocytes 13 % (21-51); MDiff Complete? YES; Mean Corpuscular HGB CONC 32.6 g/dL (32.0-36.0); Mean Corpuscular Hemoglobin 31.9 pg (27.0-31.0); Mean Corpuscular Volume 97.8 fL (78.0-98.0); Mean Platelet Volume 10.1 fL (7.4-10.4); Monocytes 12 % (0-10); Neutrophil 49 % (42-75); Platelet Count 135 thou/uL (130-400); Platelet Morphology Comment Appears Adequate; RBC Distribution Width 12.8 % (11.5-14.5); RBC Morphology Normal; Reactive Lymphocytes 8 % (0-10); Red Blood Cell (RBC) Count 4.53 mill/uL (4.70-6.10); White Blood Cell (WBC) Count 5.8 thou/uL (4.8-10.8)
[2020-12-09 16:29] LABS: #Basophils 0.1 10x3/uL (0.0-0.2); #Eosinphils 0.6 10x3/uL (0.0-0.5); #Monocytes 0.8 10x3/uL (0.0-1.1); #Neutrophils 3.8 10x3/uL (1.5-8.4); %Lymphocytes 21.4 % (18.0-47.0); %Monocytes 12.4 % (0.0-10.0); %Neutrophils 56.1 % (40.0-75.0); Hemoglobin 14.4 g/dL (13.5-17.5); Mean Corpuscular HGB CONC 32.5 g/dL (32.0-36.0); Mean Corpuscular Hemoglobin 31.3 pg (27.0-33.0); Mean Corpuscular Volume 96.3 fl (81.2-95.1); Mean Platelet Volume 12.8 fl (7.4-10.4); Platelet Count 151 10x3/uL (150-450); RBC Distribution Width 14.1 % (11.5-14.5); White Blood Cell (WBC) Count 6.8 10x3/uL (3.5-10.5)
[2020-12-10 01:13] LABS: SARS-CoV-2 PCR by NAA Not Detected (NotDetected)
== END 2020-12-09 14:46 | disposition home or self-care (01) ==
LOC: LABBT 14:45
PROVIDERS: ATTEND Orthopaedic Surgery Hand Surgery
DX: Z01.818 Encounter for other preprocedural examination (principal); D48.1 Neoplasm of uncertain behavior of connective and other soft tissue; Z20.822 Contact with and (suspected) exposure to COVID-19
CPT/HCPCS: 80048; 85025 ×2; 85610; 85730; 87086; 93005; U0003; U0005; 87635; 93010

== ENCOUNTER 2020-12-13 09:26 | Day surgery (SDC) | payer MEDICARE ==
[2020-12-09 15:38] VITALS: BMI 25.1
[2020-12-13 11:19] LABS: Anion Gap 10 mmol/L (10-20); BUN (Urea Nitrogen) 27 mg/dL (8.4-25.7); Calc. Creatinine Clearance 72 mL/min (70-130); Calcium 8.9 mg/dL (7.8-10.44); Carbon Dioxide 23 mmol/L (23-31); Chloride 109 mmol/L (98-107); Glucose 86 mg/dL (83-110); Potassium 4.3 mmol/L (3.5-5.1); Sodium 138 mmol/L (136-145)
[2020-12-13] MEDS ORDERED: Bacitracin Zinc Ointment 30 gm TUBE ONE (12:10)
[2020-12-13] MEDS ORDERED: Betamet Acet/Betamet Na Ph 30 MG/5 ML VIAL ONE (12:10)
[2020-12-13] MEDS ORDERED: Bupivacaine PF 0.5% 30 ML VIAL ONE (12:10)
[2020-12-13] MEDS ORDERED: Sodium Chloride 0.9% 10 ML ONE (12:10)
[2020-12-13] MEDS ORDERED: Fentanyl 100 MCG/2 ML VIAL ONE (12:11)
[2020-12-13] MEDS ORDERED: Dexamethasone 20 MG/5 ML VIAL ONE (12:31)
[2020-12-13] MEDS ORDERED: ePHEDrine Sulfate 50 MG/10 ML VIAL ONE (12:31)
[2020-12-13] MEDS ORDERED: Ondansetron PF 4 MG/2 ML Vial ONE (12:31)
[2020-12-13] MEDS ORDERED: PROPOFOL 200 MG/20 ML VIAL ONE (12:31)
[2020-12-13] MEDS ORDERED: Ketorolac Tromethamine 30 MG/ML VIAL ONE (12:31)
== END 2020-12-13 15:10 | disposition home or self-care (01) ==
LOC: SDC 09:26
PROVIDERS: ATTEND Orthopaedic Surgery Hand Surgery
PROC: 0JBK0ZZ Excision of Left Hand Subcutaneous Tissue and Fascia, Open Approach (ICD-10-PCS; principal; 2020-12-13)
DX: D48.7 Neoplasm of uncertain behavior of other specified sites (principal); M65.861 Other synovitis and tenosynovitis, right lower leg; I10 Essential (primary) hypertension; Z79.899 Other long term (current) drug therapy; Z91.048 Other nonmedicinal substance allergy status
CPT/HCPCS: 36415; 80048; 88305; J0690; J0702; J1100; J1885; J2405; J2704; J3010; J3490; S0020

== ENCOUNTER 2022-11-26 10:44 | Outpatient (CLI) | payer MEDICARE ==
[2022-11-26 12:28] LABS: #Basophils 0.1 10x3/uL (0.0-0.2); #Eosinphils 0.8 10x3/uL (0.0-0.5); #Neutrophils 5.1 10x3/uL (1.5-8.4); %Basophils 1.1 % (0.0-2.0); %Eosinophils 9.6 % (0.0-6.0); %Monocytes 12.2 % (0.0-10.0); %Neutrophils 61.7 % (40.0-75.0); Hemoglobin 14.4 g/dL (13.5-17.5); Mean Corpuscular HGB CONC 32.8 g/dL (32.0-36.0); Mean Corpuscular Hemoglobin 30.9 pg (27.0-33.0); Mean Corpuscular Volume 94.2 fl (81.2-95.1); Mean Platelet Volume 11.9 fl (7.4-10.4); Platelet Count 199 10x3/uL (150-450); RBC Distribution Width 14.2 % (11.5-14.5); Red Blood Cell (RBC) Count 4.66 10x6/uL (4.32-5.72); White Blood Cell (WBC) Count 8.3 10x3/uL (3.5-10.5)
[2022-11-26 12:55] LABS: ALT (SGPT) 22 U/L (8-55); AST (SGOT) 24 U/L (5-34); Albumin 3.8 g/dL (3.4-4.8); Alkaline Phosphatase 83 U/L (40-110); Anion Gap 13 mmol/L (10-20); BUN (Urea Nitrogen) 22 mg/dL (8.4-25.7); Bilirubin, Total 0.4 mg/dL (0.2-1.2); Calc. Creatinine Clearance 0 mL/min (70-130); Calcium 9.1 mg/dL (7.8-10.44); Carbon Dioxide 26 mmol/L (23-31); Chloride 105 mmol/L (98-107); Estimated GFR 83; Globulin 2.7 g/dL (2.4-3.5); Glucose 90 mg/dL (83-110); Potassium 4.8 mmol/L (3.5-5.1); Protein, Total 6.5 g/dL (5.8-8.1); Sodium 139 mmol/L (136-145)
== END 2022-11-26 10:45 | disposition home or self-care (01) ==
LOC: LABBT 10:44
PROVIDERS: ATTEND Internal Medicine Cardiovascular Disease
DX: Z01.818 Encounter for other preprocedural examination (principal); M75.101 Unspecified rotator cuff tear or rupture of right shoulder, not specified as traumatic
CPT/HCPCS: 80053; 85025; 93005; 93010

== ENCOUNTER 2022-11-28 05:39 | Day surgery (SDC) | payer MEDICARE ==
[2022-11-27 10:32] VITALS: BMI 24.5
[2022-11-28] MEDS ORDERED: Heparin 10,000 UNITS/ 10 ML VIAL ONE (06:07)
[2022-11-28] MEDS ORDERED: Lidocaine 1% (PF) 30 ML VIAL ONE (06:07)
[2022-11-28] MEDS ORDERED: Midazolam HCl 2 mg/2 ml Vial ONE (06:45)
[2022-11-28] MEDS ORDERED: fentaNYL 50 mcg/mL 1 mL Vial ONE (06:45)
[2022-11-28 06:50] LABS: Cardiac Risk 2.4 (Less than 4.5)
[2022-11-28] MEDS ORDERED: Protamine Sulfate 50 MG/5 ML VIAL ONE (08:05)
[2022-11-28] MEDS ORDERED: Acetaminophen/Codeine 30-300mg Tablet ONE (12:37)
[2022-11-28] MEDS ORDERED: Iopamidol 370 76% 100 ML VIAL ONE (15:39)
== END 2022-11-28 16:20 | disposition home or self-care (01) ==
LOC: SDC 05:39
PROVIDERS: ATTEND Internal Medicine Cardiovascular Disease
PROC: 4A023N8 Measurement of Cardiac Sampling and Pressure, Bilateral, Percutaneous Approach (ICD-10-PCS; principal; 2022-11-28)
PROC: B2111ZZ Fluoroscopy of Multiple Coronary Arteries using Low Osmolar Contrast (ICD-10-PCS; 2022-11-28)
DX: I25.10 Atherosclerotic heart disease of native coronary artery without angina pectoris (principal); I25.82 Chronic total occlusion of coronary artery; I08.0 Rheumatic disorders of both mitral and aortic valves; I25.5 Ischemic cardiomyopathy; I49.3 Ventricular premature depolarization; I47.1 Supraventricular tachycardia; E78.00 Pure hypercholesterolemia, unspecified; I10 Essential (primary) hypertension; Z87.891 Personal history of nicotine dependence; Z79.82 Long term (current) use of aspirin; Z79.899 Other long term (current) drug therapy; Z91.048 Other nonmedicinal substance allergy status
CPT/HCPCS: 80061; C1751; C1769 ×3; C1894; J3010; 36415; 85347; 93460; 99152; 99153; J1644; J2001; J2250; J2720

== ENCOUNTER 2023-04-01 12:00 | Outpatient (CLI) | payer MEDICARE | END 2023-04-01 12:01 | disposition home or self-care (01) | LOC: RAD 12:00 | PROVIDERS: ATTEND Nurse Practitioner Family | DX: Z48.812 Encounter for surgical aftercare following surgery on the circulatory system (principal); Z95.2 Presence of prosthetic heart valve | CPT/HCPCS: 71046 ==

== ENCOUNTER 2023-05-16 07:26 | Day surgery (SDC) | payer MEDICARE ==
[2023-05-13 09:23] VITALS: BMI 25.0
[2023-05-16] MEDS ORDERED: Vancomycin 1 GM/200 ML (FROZEN) BAG ONE (07:45)
[2023-05-16] MEDS ORDERED: Tranexamic Acid 1,000 MG/10 ML VIAL ONE (07:45)
[2023-05-16] MEDS ORDERED: Sodium Chloride 0.9% 100 ML ONE ×2 (07:45→09:45)
[2023-05-16] MEDS ORDERED: Ropivacaine 0.5% HCl/PF (150 MG/30 ML VIAL) ONE (08:15)
[2023-05-16] MEDS ORDERED: Ropivacaine 0.2% HCl/PF 20 ML ONE (08:15)
[2023-05-16] MEDS ORDERED: fentaNYL 50 mcg/mL 1 mL Vial ONE (08:15)
[2023-05-16] MEDS ORDERED: fentaNYL 50 mcg/mL 1 mL Vial SLOW IVP PRN (08:52)
[2023-05-16] MEDS ORDERED: HYDROcodone/Acetaminophen 10/325 mg Tablet PO PRN ×2 (09:00)
[2023-05-16] MEDS ORDERED: Zolpidem Tartrate 5 MG TAB PO PRN (09:00)
[2023-05-16] MEDS ORDERED: Promethazine HCl 25 MG/ML VIAL IM PRN (09:00)
[2023-05-16] MEDS ORDERED: Ropivacaine 0.2% 550 ML 550 ML NERVE BLCK SCH (09:00)
[2023-05-16] MEDS ORDERED: Ondansetron PF 4 MG/2 ML Vial IVP PRN (09:00)
[2023-05-16] MEDS ORDERED: traMADol HCl 50 MG TAB PO PRN ×2 (09:00)
[2023-05-16] MEDS ORDERED: fentaNYL PF 100 MCG/2 ML SYRINGE ONE (09:34)
[2023-05-16] MEDS ORDERED: CEFAZOLIN 2 GM VIAL ONE (09:45)
[2023-05-16] MEDS ORDERED: Glycopyrrolate 0.2 MG/ML 5 ML SYRINGE ONE (10:01)
[2023-05-16] MEDS ORDERED: Ondansetron PF 4 MG/2 ML Vial ONE (10:01)
[2023-05-16] MEDS ORDERED: PROPOFOL 200 MG/20 ML VIAL ONE (10:01)
[2023-05-16] MEDS ORDERED: NEOSTIGMINE 3 MG/3 ML SYR 3 MG/3 ML SYRINGE ONE (10:01)
[2023-05-16] MEDS ORDERED: Rocuronium Bromide 10 MG/ML (10ML VIAL) ONE (10:01)
[2023-05-16] MEDS ORDERED: ePHEDrine Sulfate 50 MG/10 ML VIAL ONE (10:01)
[2023-05-16] MEDS ORDERED: Ketorolac Tromethamine 30 MG/ML VIAL IVP SCH (12:00)
== END 2023-05-16 14:11 | disposition home or self-care (01) ==
LOC: SDC 07:26
PROVIDERS: ATTEND Orthopaedic Surgery
PROC: 0RWJ0JZ Revision of Synthetic Substitute in Right Shoulder Joint, Open Approach (ICD-10-PCS; principal; 2023-05-16)
PROC: 0LS30ZZ Reposition Right Upper Arm Tendon, Open Approach (ICD-10-PCS; 2023-05-16)
DX: M75.101 Unspecified rotator cuff tear or rupture of right shoulder, not specified as traumatic (principal); M12.811 Other specific arthropathies, not elsewhere classified, right shoulder; C61 Malignant neoplasm of prostate; N20.0 Calculus of kidney; Z98.890 Other specified postprocedural states; Z87.891 Personal history of nicotine dependence; Z79.82 Long term (current) use of aspirin; Z79.899 Other long term (current) drug therapy
CPT/HCPCS: 23430; 23472; A4306; C1713 ×6; C1776 ×2; J3010; J3370; J2405; J2704; J2795; J3490

== ENCOUNTER 2023-08-30 13:31 | Outpatient (CLI) | payer MEDICARE ==
[2023-08-30 14:25] LABS: Hematocrit 44.1 % (38.8-50.0); Hemoglobin 14.4 g/dL (13.5-17.5); Mean Corpuscular HGB CONC 32.7 g/dL (32.0-36.0); Mean Corpuscular Hemoglobin 29.4 pg (27.0-33.0); Mean Corpuscular Volume 90.2 fl (81.2-95.1); Platelet Count 155 10x3/uL (150-450); Red Blood Cell (RBC) Count 4.89 10x6/uL (4.32-5.72); White Blood Cell (WBC) Count 5.5 10x3/uL (3.5-10.5)
[2023-08-30 14:43] LABS: Anion Gap 14 mmol/L (10-20); BUN (Urea Nitrogen) 20 mg/dL (8.4-25.7); Calc. Creatinine Clearance 0 mL/min (70-130); Calcium 8.9 mg/dL (7.8-10.44); Carbon Dioxide 23 mmol/L (23-31); Chloride 107 mmol/L (98-107); Estimated GFR 72; Glucose 141 mg/dL (83-110); Potassium 4.2 mmol/L (3.5-5.1); Sodium 140 mmol/L (136-145)
[2023-08-30 14:50] LABS: PTT 27.3 sec (22.0-33.0); Prothrombin Time 11.2 sec (9.5-12.1)
== END 2023-08-30 13:32 | disposition home or self-care (01) ==
LOC: LABBT 13:31
PROVIDERS: ATTEND Urology
DX: Z01.812 Encounter for preprocedural laboratory examination (principal); N20.0 Calculus of kidney; N28.89 Other specified disorders of kidney and ureter; R31.0 Gross hematuria
CPT/HCPCS: 80048; 85027; 85610; 85730

== ENCOUNTER 2023-09-02 06:02 | Day surgery (SDC) | payer MEDICARE ==
[2023-08-30 14:14] VITALS: BMI 25.0
[2023-09-02] MEDS ORDERED: Iopamidol 15 ML ONE (06:47)
[2023-09-02] MEDS ORDERED: LevoFLOXacin D5W 500 mg (100 mL) BAG ONE (07:15)
[2023-09-02] MEDS ORDERED: Vasopressin 20 UNITS/ML VIAL ONE (07:22)
[2023-09-02] MEDS ORDERED: fentaNYL PF 100 MCG/2 ML SYRINGE ONE (07:24)
[2023-09-02] MEDS ORDERED: Etomidate 40 MG (20 mL) VIAL ONE (07:27)
[2023-09-02] MEDS ORDERED: Lidocaine 1% PF 5 ML VIAL ONE (07:28)
[2023-09-02] MEDS ORDERED: ePHEDrine Sulfate 50 MG/10 ML VIAL ONE (07:45)
[2023-09-02] MEDS ORDERED: Ondansetron PF 4 MG/2 ML Vial ONE (07:47)
[2023-09-02] MEDS ORDERED: Dexamethasone 4 mg/ml Vial ONE (07:47)
[2023-09-02] MEDS ORDERED: Sevoflurane 250 ML INH ANEST BOTTLE ONE (07:53)
[2023-09-02] MEDS ORDERED: Ketorolac Tromethamine 30 MG (1 mL) VIAL ONE (08:07)
== END 2023-09-02 10:45 | disposition home or self-care (01) ==
LOC: SDC 06:02
PROVIDERS: ATTEND Urology
PROC: 0T778DZ Dilation of Left Ureter with Intraluminal Device, Via Natural or Artificial Opening Endoscopic (ICD-10-PCS; principal; 2023-09-02)
DX: N20.0 Calculus of kidney (principal); R31.0 Gross hematuria; Z79.899 Other long term (current) drug therapy; Z96.652 Presence of left artificial knee joint; Z98.890 Other specified postprocedural states; Z91.048 Other nonmedicinal substance allergy status
CPT/HCPCS: 52332; 74420; C2617; 88112; J1100; J1885; J1956; J2405; Q9967

== ENCOUNTER 2023-09-04 13:26 | Outpatient (CLI) | payer MEDICARE | END 2023-09-04 13:27 | disposition home or self-care (01) | LOC: LABBT 13:26 | PROVIDERS: ATTEND Urology | DX: Z01.812 Encounter for preprocedural laboratory examination (principal); N20.0 Calculus of kidney; R31.9 Hematuria, unspecified | CPT/HCPCS: 87086 ==

== ENCOUNTER 2023-09-10 11:17 | Day surgery (SDC) | payer MEDICARE ==
[2023-09-04 13:53] VITALS: BMI 25.5
[2023-09-10] MEDS ORDERED: PROPOFOL 20 ML ONE (12:45)
[2023-09-10] MEDS ORDERED: fentaNYL 50 mcg/mL 1 mL Vial ONE (12:46)
[2023-09-10] MEDS ORDERED: LevoFLOXacin D5W 500 mg (100 mL) BAG ONE (13:36)
[2023-09-10] MEDS ORDERED: Rocuronium Bromide 10 MG/ML (10ML VIAL) ONE (14:08)
[2023-09-10] MEDS ORDERED: Lidocaine 1% PF 5 ML VIAL ONE (14:13)
[2023-09-10] MEDS ORDERED: PHENYLEPHRINE-NS 100 MCG/ML 10 ML SYRINGE ONE (14:33)
[2023-09-10] MEDS ORDERED: ePHEDrine Sulfate 50 MG/10 ML VIAL ONE (14:44)
[2023-09-10] MEDS ORDERED: SUGAMMADEX SODIUM 200 MG/2 ML VIAL ONE (16:04)
== END 2023-09-10 18:03 | disposition home or self-care (01) ==
LOC: SDC 11:17
PROVIDERS: ATTEND Urology
PROC: 0TB18ZX Excision of Left Kidney, Via Natural or Artificial Opening Endoscopic, Diagnostic (ICD-10-PCS; principal; 2023-09-10)
PROC: 0T778DZ Dilation of Left Ureter with Intraluminal Device, Via Natural or Artificial Opening Endoscopic (ICD-10-PCS; 2023-09-10)
DX: N20.1 Calculus of ureter (principal); N13.30 Unspecified hydronephrosis; Z91.048 Other nonmedicinal substance allergy status; Z79.899 Other long term (current) drug therapy; Z98.890 Other specified postprocedural states
CPT/HCPCS: 52354; 52356; 74420; 82365; C2617; J3010; 88300; 88305; J1956; J2704

== ENCOUNTER 2023-12-18 07:26 | Observation (INO) | payer MEDICARE ==
[2023-12-16 10:59] VITALS: BMI 25.8
[2023-12-18] MEDS ORDERED: CEFAZOLIN 2 GM VIAL ONE (07:58)
[2023-12-18] MEDS ORDERED: Sodium Chloride 0.9% 100 ML ONE (07:58)
[2023-12-18] MEDS ORDERED: EPINEPHrine 1 MG/ML VIAL ONE (08:41)
[2023-12-18] MEDS ORDERED: Bupivacaine 0.25% HCL 30 ML VIAL ONE (08:41)
[2023-12-18] MEDS ORDERED: PROPOFOL 20 ML ONE (08:52)
[2023-12-18] MEDS ORDERED: fentaNYL PF 100 MCG/2 ML SYRINGE ONE ×3 (08:52→13:42)
[2023-12-18] MEDS ORDERED: Ketamine In 0.9 % NaCl 50 MG/5 ML SYRINGE ONE (08:52)
[2023-12-18] MEDS ORDERED: Lidocaine 1% PF 5 ML VIAL ONE (08:53)
[2023-12-18] MEDS ORDERED: Rocuronium Bromide 10 MG/ML (10ML VIAL) ONE (08:53)
[2023-12-18] MEDS ORDERED: Ipratropium/Albuterol 3 ML NEB ONE (09:11)
[2023-12-18] MEDS ORDERED: Dexamethasone 20 MG/5 ML VIAL ONE (10:17)
[2023-12-18] MEDS ORDERED: ePHEDrine Sulfate 50 MG/10 ML VIAL ONE (10:18)
[2023-12-18] MEDS ORDERED: Vecuronium 10 MG VIAL ONE (12:06)
[2023-12-18] MEDS ORDERED: SUGAMMADEX SODIUM 200 MG/2 ML VIAL ONE (12:21)
[2023-12-18] MEDS ORDERED: Ondansetron PF 4 MG/2 ML Vial ONE (12:23)
[2023-12-18] MEDS ORDERED: fentaNYL 50 mcg/mL 1 mL Vial ONE ×2 (12:55→12:59)
[2023-12-18] MEDS ORDERED: Ipratropium/Albuterol 3 ML NEB NEB PRN (13:01)
[2023-12-18] MEDS ORDERED: Dextrose 50% Abboject 50 ML SYRINGE SLOW IVP PRN (13:01)
[2023-12-18] MEDS ORDERED: Promethazine HCl 25 MG/ML VIAL IM PRN ×2 (13:01→13:30)
[2023-12-18] MEDS ORDERED: Mag-Al 1200 mg/1200 mg/30 ML UDCUP PO PRN (13:01)
[2023-12-18] MEDS ORDERED: Dextrose 5% in Water 1,000 ML IV PRN (13:01)
[2023-12-18] MEDS ORDERED: hydrALAZINE 20 MG/ML VIAL SLOW IVP PRN (13:01)
[2023-12-18] MEDS ORDERED: Calcium Carbonate 500 MG ChewTAB PO PRN (13:01)
[2023-12-18] MEDS ORDERED: Glucagon 1 MG/ML KIT IM PRN (13:01)
[2023-12-18] MEDS ORDERED: Ondansetron PF 4 MG/2 ML Vial IVP PRN ×2 (13:01→13:30)
[2023-12-18] MEDS ORDERED: diphenhydrAMINE 50 MG/ML VIAL IM/IV PRN (13:30)
[2023-12-18] MEDS ORDERED: Naloxone HCl 0.4 mg/ml Vial IV PRN (13:30)
[2023-12-18] MEDS ORDERED: diphenhydrAMINE 25 MG CAP PO PRN (13:30)
[2023-12-18] MEDS ORDERED: Fentanyl CADD 100 ML IVPB SCH (13:30)
[2023-12-18] MEDS ORDERED: Sodium Chloride For Inhalation 0.9% 3 ML NEB ONE (16:05)
[2023-12-18] MEDS ORDERED: Albuterol 2.5 MG (0.5 mL) NEB ONE (16:05)
[2023-12-18] MEDS: cefOXitin 2 GM in Sodium Chloride 0.9% 100 ML IVPB SCH (18:31)
[2023-12-18] MEDS: Sodium Chloride 0.9% 1,000 ML IV SCH (18:31)
[2023-12-18] MEDS: Ketorolac Tromethamine 30 MG (1 mL) VIAL IVP SCH (18:31)
[2023-12-18] MEDS: Famotidine 20 MG TAB PO SCH (21:00)
[2023-12-19] MEDS: Famotidine/PF 20 mg/2ml Vial SLOW IVP SCH (00:15)
[2023-12-19 04:00] VITALS: TEMP 97.9
[2023-12-19 05:46] LABS: Globulin 2.9 g/dL (2.4-3.5)
[2023-12-19 05:50] LABS: ALT (SGPT) 22 U/L (8-55); AST (SGOT) 23 U/L (5-34); Albumin 3.1 g/dL (3.4-4.8); Alkaline Phosphatase 97 U/L (40-110); Anion Gap 16 mmol/L (10-20); BUN (Urea Nitrogen) 23 mg/dL (8.4-25.7); Bilirubin, Total 0.4 mg/dL (0.2-1.2); Calc. Creatinine Clearance 68 mL/min (70-130); Calcium 8.6 mg/dL (7.8-10.44); Carbon Dioxide 22 mmol/L (23-31); Chloride 107 mmol/L (98-107); Estimated GFR 85; Glucose 141 mg/dL (83-110); Potassium 5.1 mmol/L (3.5-5.1); Sodium 140 mmol/L (136-145)
[2023-12-19 05:57] LABS: #Basophils Less than 0.03 10x3/uL (0.0-0.2); #Eosinphils Less than 0.03 10x3/uL (0.0-0.7); %Basophils 0.1 % (0.0-1.0); %Lymphocytes 7.9 % (21.0-51.0); %Monocytes 11.2 % (0.0-10.0); %Neutrophils 80.4 % (42.0-75.0); Hematocrit 41.9 % (42.0-52.0); Hemoglobin 13.6 g/dL (14.0-18.0); Mean Corpuscular HGB CONC 32.5 g/dL (32.0-36.0); Mean Corpuscular Hemoglobin 30.6 pg (27.0-31.0); Mean Corpuscular Volume 94.2 fL (78.0-98.0); Mean Platelet Volume 12.2 fL (7.4-10.4); Platelet Count 129 10x3/uL (130-400); RBC Distribution Width 14.6 % (11.5-14.5); Red Blood Cell (RBC) Count 4.45 mill/uL (4.70-6.10)
[2023-12-19] MEDS: Enoxaparin 40 MG (0.4 mL) SYRINGE SC SCH (08:48)
[2023-12-19 10:42] VITALS: BP 125/70
== END 2023-12-19 11:20 | disposition home or self-care (01) ==
LOC: SDC 07:26 → SURG A 13:01
PROVIDERS: ADMIT Surgery; ATTEND Surgery
PROC: 0WUF4JZ Supplement Abdominal Wall with Synthetic Substitute, Percutaneous Endoscopic Approach (ICD-10-PCS; principal; 2023-12-18)
DX: K43.2 Incisional hernia without obstruction or gangrene (principal); Z91.048 Other nonmedicinal substance allergy status; Z87.891 Personal history of nicotine dependence; Z95.1 Presence of aortocoronary bypass graft; Z95.4 Presence of other heart-valve replacement; Z79.899 Other long term (current) drug therapy
CPT/HCPCS: 49595; 80053; 85025; A4314; C1781 ×2; J0171; J3010 ×2; 36415; J0665; J0694; J1100; J1650; J1885; J2405; J2704; J3490; J7611; J7620

== ENCOUNTER 2024-08-25 08:34 | Outpatient (CLI) | payer MEDICARE | END 2024-08-25 08:35 | disposition home or self-care (01) | LOC: SCSRAD 08:34 | PROVIDERS: ATTEND Family Medicine | DX: Z87.891 Personal history of nicotine dependence (principal); J98.4 Other disorders of lung; I70.0 Atherosclerosis of aorta; Z98.890 Other specified postprocedural states; Z96.611 Presence of right artificial shoulder joint | CPT/HCPCS: 71046 ==

== ENCOUNTER 2025-06-01 12:18 | Outpatient (CLI) | payer MEDICARE ==
[2025-06-01 13:24] LABS: #Basophils 0.10 10x3/uL (0.0-0.2); #Eosinophils 0.61 10x3/uL (0.0-0.7); #Monocytes 1.05 10x3/uL (0.11-0.59); #Neutrophils 4.56 10x3/uL (1.40-6.50); %Basophils 1.2 % (0.0-1.0); %Eosinophils 7.3 % (0.0-10.0); %Lymphocytes 23.5 % (21.0-51.0); %Monocytes 12.7 % (0.0-10.0); %Neutrophils 54.9 % (42.0-75.0); Hematocrit 41.6 % (42.0-52.0); Hemoglobin 13.1 g/dL (14.0-18.0); Mean Corpuscular Hemoglobin 28.2 pg (27.0-31.0); Mean Corpuscular Volume 89.7 fL (78.0-98.0); Platelet Count 172 10x3/uL (130-400); Red Blood Cell (RBC) Count 4.64 mill/uL (4.70-6.10); White Blood Cell (WBC) Count 8.30 10x3/uL (4.8-10.8)
[2025-06-01 13:40] LABS: INR-International Normal Ratio 1.0; Prothrombin Time 13.7 sec (12.0-14.7)
[2025-06-01 13:41] LABS: PTT 31.3 sec (22.9-36.1)
[2025-06-01 13:51] LABS: Anion Gap 13 mmol/L (10-20); BUN (Urea Nitrogen) 28 mg/dL (8.4-25.7); Calc. Creatinine Clearance 0 mL/min (70-130); Calcium 10.0 mg/dL (7.8-10.44); Carbon Dioxide 28 mmol/L (23-31); Chloride 109 mmol/L (98-107); Glucose 83 mg/dL (83-110); Potassium 5.5 mmol/L (3.5-5.1); Sodium 144 mmol/L (136-145)
== END 2025-06-01 12:19 | disposition home or self-care (01) ==
LOC: LABBT 12:18
PROVIDERS: ATTEND Urology
DX: Z01.818 Encounter for other preprocedural examination (principal)
CPT/HCPCS: 80048; 85025; 85610; 85730; 87086; 93005; 93010

== ENCOUNTER 2025-06-07 06:44 | Day surgery (SDC) | payer MEDICARE ==
[2025-06-01 12:36] VITALS: BMI 24.6
[2025-06-07] MEDS ORDERED: CEFAZOLIN 2 GM VIAL ONE (08:44)
[2025-06-07] MEDS ORDERED: PROPOFOL 40 ML ONE (10:44)
[2025-06-07] MEDS ORDERED: Rocuronium Bromide 10 MG/ML (10ML VIAL) ONE (10:44)
[2025-06-07] MEDS ORDERED: Lidocaine 1% PF 5 ML VIAL ONE (10:50)
[2025-06-07] MEDS ORDERED: PHENYLEPHRINE-NS 100 MCG/ML 10 ML SYRINGE ONE (11:22)
[2025-06-07] MEDS ORDERED: SUGAMMADEX SODIUM 200 MG/2 ML VIAL ONE (11:47)
[2025-06-07] MEDS ORDERED: Ondansetron PF 4 MG/2 ML Vial ONE (11:58)
== END 2025-06-07 14:05 | disposition home or self-care (01) ==
LOC: SDC 06:44
PROVIDERS: ATTEND Urology
PROC: BT1FYZZ Fluoroscopy of Left Kidney, Ureter and Bladder using Other Contrast (ICD-10-PCS; principal; 2025-06-07)
PROC: 0T778DZ Dilation of Left Ureter with Intraluminal Device, Via Natural or Artificial Opening Endoscopic (ICD-10-PCS; 2025-06-07)
DX: N13.30 Unspecified hydronephrosis (principal); I10 Essential (primary) hypertension; Z96.652 Presence of left artificial knee joint; Z91.048 Other nonmedicinal substance allergy status
CPT/HCPCS: 52332; 52351; 74420; C1769; C2617; J2405; J2704; J3010; Q9967; 88104; 88112